=== PATIENT | female | born 1945 | race Caucasian/White ===

== ENCOUNTER 2022-05-22 14:16 | Emergency (ER) | payer MEDICARE, MEDICAID ==
[~2022-05-22] VITALS: Ht 167.6 cm; Wt 65.0 kg
[2022-05-22] MEDS ORDERED: KETOROLAC 60MG/2ML VIAL IM ONE (14:45)
[2022-05-22] MEDS ORDERED: HYDROCODONE/ACETAMINOPHEN 5/325MG TABLET PO ONE (14:45)
[2022-05-22] MEDS ORDERED: MORP15TA67 MT (16:48)
[2022-05-22] MEDS ORDERED: TOPUD PO (16:48)
[2022-05-22] MEDS ORDERED: IBUP-2028 MT (16:48)
[2022-05-22 20:22] VITALS: BP 118/60
== END 2022-05-22 20:27 ==
LOC: ER 14:16
DX: S42.201A Unspecified fracture of upper end of right humerus, initial encounter for closed fracture (principal); E78.00 Pure hypercholesterolemia, unspecified; I10 Essential (primary) hypertension; Z88.0 Allergy status to penicillin; W18.30XA Fall on same level, unspecified, initial encounter; Y93.89 Activity, other specified; Y92.89 Other specified places as the place of occurrence of the external cause; Y99.8 Other external cause status
CPT/HCPCS: 73030; 73060; 96372; 99284; J1885

== ENCOUNTER → 2022-07-13 | Outpatient (CLI) | payer MEDICARE, OTHER ==
[~2022-07-13] MED LIST: IBUP-2028 MT; MORP15TA67 MT; TOPUD PO
== END | disposition home or self-care (01) ==
LOC: MRI 07-10 09:24
PROVIDERS: ATTEND Internal Medicine
DX: E07.89 Other specified disorders of thyroid (principal)
CPT/HCPCS: 70540

== ENCOUNTER 2022-07-26 19:00 | Inpatient (IN) | payer MEDICARE, OTHER ==
[~2022-07-26] VITALS: Ht 165.1 cm; Wt 68.0 kg
[2022-07-26] MEDS ORDERED: MORPHINE SULFATE 4 MG/ML CPJ (NOT FOR IM USE) IV STA ×2 (19:44→23:17)
[2022-07-26] MEDS ORDERED: ONDANSETRON HCL 4MG/2ML INJ IV STA ×2 (19:44→23:17)
[2022-07-26] MEDS ORDERED: SODIUM CHLORIDE 0.9% 1,000 ML IV ONE (19:45)
[2022-07-26 20:40] LABS: BASOPHILS % 0.1 % (0.0-2.0); EOSINOPHILS % 0.1 % (0.0-5.0); HEMATOCRIT. 35.8 % (36.0-48.0); HEMOGLOBIN. 11.9 g/dL (12.0-16.0); LYMPHOCYTES % 15.6 % (20.0-50.0); MEAN CORPUSCULAR HEMOGLOBIN 31.7 pg (28.0-32.0); MEAN CORPUSCULAR VOLUME 94.9 fL (81.0-99.0); MEAN PLATELET VOLUME 9.5 fl (7.4-10.4); MONOCYTES % 14.6 % (2.0-8.0); NEUTROPHILS % 69.6 % (40.0-76.0); PLATELET 214 x1000/uL (130-400); RED BLOOD CELL COUNT 3.77 mill/uL (4.2-5.4); RED CELL DISTRIBUTION WIDTH 13.9 % (11.6-14.6)
[2022-07-26 20:52] LABS: CHLORIDE 101 mEq/L (98-107)
[2022-07-26 23:38] LABS: INR 1.1; PROTHROMBIN TIME 11.5 sec (9.6-11.0)
[2022-07-27] VITALS (7 sets, daily range): BP systolic 136–165; BP diastolic 94–102
[2022-07-27] MEDS ORDERED: HYDRALAZINE 20MG/ML VIAL IV PRN (07:45)
[2022-07-27] MEDS ORDERED: GUAIFENESIN 200MG/10ML SUGAR FREE UDC PO PRN (07:45)
[2022-07-27] MEDS ORDERED: ONDANSETRON HCL 4MG/2ML INJ IV PRN (07:45)
[2022-07-27] MEDS ORDERED: CLONIDINE 0.1MG TABLET PO PRN (07:45)
[2022-07-27] MEDS ORDERED: DOCUSATE SODIUM 100MG CAPSULE PO PRN (07:45)
[2022-07-27] MEDS ORDERED: MAGNESIUM/ALUMINUM HYDROXIDE/SIMETHICONE 30ML UDC PO PRN (07:45)
[2022-07-27] MEDS ORDERED: IPRATROPIUM/ALBUTEROL 0.5-3(2.5)MG/3ML NEB HHN PRN (07:45)
[2022-07-27] MEDS ORDERED: DIPHENHYDRAMINE 50MG/ML VIAL IV PRN (07:45)
[2022-07-27] MEDS: MORPHINE SULFATE 2 MG/ML CPJ (NOT FOR IM USE) IV PRN (08:36)
[2022-07-27] MEDS: DEXT 5%/0.45% NACL 1000ML 1,000 ML IV SCH ×2 (08:37→22:40)
[2022-07-27] MEDS ORDERED: ACETAMINOPHEN 650MG SUPP PR PRN (11:15)
[2022-07-27] MEDS ORDERED: LIDOCAINE 2%/EPINEPHRINE 1:200,000 20 ML VIAL INJ ONE (12:59)
[2022-07-27] MEDS ORDERED: VANCOMYCIN HCL 1 GM/VIAL ONE (13:00)
[2022-07-27] MEDS ORDERED: POLYMYXIN B SULFATE 500000 UNITS/VIAL ONE (13:00)
[2022-07-27] MEDS ORDERED: BACITRACIN 15GM TUBE TOP ONE (13:00)
[2022-07-27] MEDS ORDERED: NALOXONE HCL 0.4MG/ML VIAL IV PRN (13:30)
[2022-07-27] MEDS: SODIUM CHLORIDE 0.9% INJ 3ML FLUSH IVF SCH ×2 (14:00→22:40)
[2022-07-27] MEDS ORDERED: CEFAZOLIN SODIUM 1000MG/VIAL ONE (15:48)
[2022-07-27] MEDS ORDERED: PROPOFOL 200MG/20ML VIAL IV ONE (15:50)
[2022-07-27] MEDS ORDERED: MIDAZOLAM HCL 2 MG/2 ML VIAL ONE (16:15)
[2022-07-27] MEDS ORDERED: CLINDAMYCIN 600MG PREMIX 50 ML IV ONE (16:16)
[2022-07-27] MEDS ORDERED: DEXAMETHASONE 4MG/ML 1ML VIAL ONE (16:26)
[2022-07-27] MEDS ORDERED: ONDANSETRON HCL 4MG/2ML INJ ONE (16:26)
[2022-07-27] MEDS ORDERED: FENTANYL CITRATE/PF 50MCG/ML 2ML VIAL ONE ×2 (16:27→17:43)
[2022-07-27] MEDS ORDERED: PHENYLEPHRINE HCL 10 MG/ML 1ML (IV VIAL) IV ONE (16:38)
[2022-07-27] MEDS ORDERED: HYDROMORPHONE HCL/PF 2MG/ML CPJ IV PRN (17:00)
[2022-07-27] MEDS ORDERED: ATROPINE SULFATE 0.4MG/ML VIAL IV PRN (17:00)
[2022-07-27] MEDS ORDERED: FENTANYL CITRATE/PF 50MCG/ML 2ML VIAL IV PRN (17:00)
[2022-07-28] VITALS: BP 130/94
[2022-07-28] MEDS: MORPHINE SULFATE 2 MG/ML CPJ (NOT FOR IM USE) IV PRN ×3 (01:38→20:56)
[2022-07-28] MEDS: CLINDAMYCIN 600MG PREMIX 50 ML IV SCH ×3 (01:49→11:29)
[2022-07-28 04:00] VITALS: BP 128/96
[2022-07-28] MEDS: SODIUM CHLORIDE 0.9% INJ 3ML FLUSH IVF SCH ×3 (05:56→22:00)
[2022-07-28] MEDS: ACETAMINOPHEN 325MG TABLET PO PRN ×2 (06:26→18:22)
[2022-07-28 08:00] VITALS: BP 133/76
[2022-07-28 08:18] LABS: BASOPHILS % 0.2 % (0.0-2.0); HEMATOCRIT. 34.2 % (36.0-48.0); HEMOGLOBIN. 11.1 g/dL (12.0-16.0); LYMPHOCYTES % 7.9 % (20.0-50.0); MEAN CORPUSCULAR HEMOGLOBIN 31.4 pg (28.0-32.0); NEUTROPHILS % 77.9 % (40.0-76.0); PLATELET 207 x1000/uL (130-400); RED BLOOD CELL COUNT 3.56 mill/uL (4.2-5.4); RED CELL DISTRIBUTION WIDTH 13.7 % (11.6-14.6)
[2022-07-28 08:20] LABS: CHLORIDE 103 mEq/L (98-107)
[2022-07-28 08:56] LABS: T4 FREE 1.54 ng/dL (0.76-1.46)
[2022-07-28] MEDS: ENOXAPARIN 40MG/0.4ML SYR SUBCUT SCH (10:17)
[2022-07-28 12:00] VITALS: BP 136/91
[2022-07-28] MEDS ORDERED: MORPHINE SULFATE 2 MG/ML CPJ (NOT FOR IM USE) IV NR (13:00)
[2022-07-28 16:00] VITALS: BP 135/72
[2022-07-28 17:12] LABS: CREATINE KINASE MB FRACTION 2.2 ng/mL (0.5-3.6)
[2022-07-28 20:00] VITALS: BP 148/79
[2022-07-28 23:48] LABS: CREATINE KINASE MB FRACTION 2.8 ng/mL (0.5-3.6)
[2022-07-29] VITALS: BP 129/90
[2022-07-29] MEDS: HYDROCODONE/ACETAMINOPHEN 5/325MG TABLET PO PRN ×2 (02:23→13:52)
[2022-07-29] MEDS: SODIUM CHLORIDE 0.9% INJ 3ML FLUSH IVF SCH ×2 (06:18→14:10)
[2022-07-29 08:00] VITALS: BP 124/81
[2022-07-29 09:37] VITALS: BP 124/81
[2022-07-29] MEDS: ENOXAPARIN 40MG/0.4ML SYR SUBCUT SCH (09:52)
[2022-07-29] MEDS: MORPHINE SULFATE 2 MG/ML CPJ (NOT FOR IM USE) IV PRN ×2 (09:53→17:35)
[2022-07-29 10:05] LABS: HEMATOCRIT. 29.4 % (36.0-48.0); HEMOGLOBIN. 9.8 g/dL (12.0-16.0); MEAN CORPUSCULAR VOLUME 96.1 fL (81.0-99.0); MEAN PLATELET VOLUME 9.8 fl (7.4-10.4); PLATELET 225 x1000/uL (130-400); RED BLOOD CELL COUNT 3.05 mill/uL (4.2-5.4); RED CELL DISTRIBUTION WIDTH 14.1 % (11.6-14.6)
[2022-07-29 10:53] LABS: CREATINE KINASE MB FRACTION 1.7 ng/mL (0.5-3.6)
[2022-07-29 12:00] VITALS: BP 154/92
[2022-07-29 14:45] LABS: PLATELET ESTIMATE NORMAL
[2022-07-29 16:00] VITALS: BP 132/84
[2022-07-29 17:35] VITALS: BP 132/84
== END 2022-07-29 19:17 | DRG 480 ==
LOC: ER 19:00 → MICUSO 07-27 01:16 → 7WST 07-27 03:18
PROVIDERS: ADMIT Internal Medicine; ATTEND Internal Medicine
PROC: 0QS736Z Reposition Left Upper Femur with Intramedullary Internal Fixation Device, Percutaneous Approach (ICD-10-PCS; principal; 2022-07-28)
DX: S72.22XA Displaced subtrochanteric fracture of left femur, initial encounter for closed fracture (principal); A41.89 Other specified sepsis; U07.1 COVID-19; J12.82 Pneumonia due to coronavirus disease 2019; J96.00 Acute respiratory failure, unspecified whether with hypoxia or hypercapnia; E87.1 Hypo-osmolality and hyponatremia; M80.00XA Age-related osteoporosis with current pathological fracture, unspecified site, initial encounter for fracture; E78.00 Pure hypercholesterolemia, unspecified; E78.5 Hyperlipidemia, unspecified; D64.9 Anemia, unspecified; I10 Essential (primary) hypertension; F02.80 Dementia in other diseases classified elsewhere, unspecified severity, without behavioral disturbance, psychotic disturbance, mood disturbance, and anxiety; M71.40 Calcium deposit in bursa, unspecified site; M19.90 Unspecified osteoarthritis, unspecified site; S72.142A Displaced intertrochanteric fracture of left femur, initial encounter for closed fracture; W06.XXXA Fall from bed, initial encounter; Y92.003 Bedroom of unspecified non-institutional (private) residence as the place of occurrence of the external cause
CPT/HCPCS: 36415; 71045; 72100; 72131; 72192; 73030; 73502; 73552; 76000; 80053; 80061; 82550; 82553; 83036; 83880; 84439; 84443; 84484; 85025; 85379; 86850; 86900; 87426; 93005; 93970; 97161; 99285; A4565; C1893; C9803; J0690; J1100; J1200; J1650; J2250; J2270; J2370; J2405; J2704; J3010; J3370; J3490; J7030